=== PATIENT | female | born 1970 | race Caucasian/White ===

== ENCOUNTER 2017-02-07 20:04 | Emergency (ER) | payer OTHER ==
[2017-02-07 20:34] LABS: HEMOGLOBIN 12.7 gm/dl (12.3-15.3); RED BLOOD COUNT 4.5 M/UL (4.00-5.10); WHITE BLOOD COUNT 9.4 K/UL (4.5-11.0)
[2017-02-07 20:55] LABS: BUN/CREATININE RATIO 18 (0-10)
== END 2017-02-07 23:15 | disposition home or self-care (01) ==
LOC: ER1 20:04
PROVIDERS: Emergency Medicine
DX: I50.41 Acute combined systolic (congestive) and diastolic (congestive) heart failure (principal); Z88.5 Allergy status to narcotic agent
CPT/HCPCS: 36415; 71010; 80053; 82550; 82553; 83874; 83880; 84484; 85025; 93005; 99285

== ENCOUNTER → 2022-01-31 | Outpatient (CLI) | payer MEDICARE | LOC: RAD 10:00 | DX: M25.552 Pain in left hip (principal) | CPT/HCPCS: J3301; Q9967 ==